=== PATIENT | female | born 1975 | race African-American/Black ===

== ENCOUNTER 2016-12-08 00:37 | Inpatient (IN) ==
[2016-12-08] MEDS ORDERED: DUONEB (A & A) INH ONE (00:51)
[2016-12-08] MEDS ORDERED: NITROGLYCERIN TOP ONE (00:51)
[2016-12-08] MEDS ORDERED: ALBUTEROL NEB INH ONE ×2 (00:51→02:00)
[2016-12-08] MEDS ORDERED: NITROGLYCERIN SL ONE (00:52)
[2016-12-08] MEDS ORDERED: CATAPRES PO ONE (02:21)
[2016-12-08] MEDS ORDERED: NORCO-10 PO ONE (02:22)
[2016-12-08] MEDS ORDERED: SOLU-MEDROL IV ONE (03:08)
[2016-12-08 03:18] LABS: MANUAL DIFF NEEDED? NO
[2016-12-08 03:21] LABS: BASO% 0.2 % (0.0-0.8); EOS# 0.19 X1000 (0.0-0.7); EOS% 3.5 % (0.0-10.0); HEMATOCRIT 32.8 % (37.0-47.0); HEMOGLOBIN 10.9 g/dL (12.0-16.0); IMM GRAN# 0.01 X1000 (0.0-0.04); IMM GRAN% 0.2 % (0.0-0.5); LYMPH# 1.23 X1000 (1.2-3.4); LYMPH% 22.4 % (20.5-51.1); MCH 27.5 PG (27-31); MCHC 33.2 g/dL (33-37); MCV 82.8 FL (81-99); MONO# 0.66 X1000 (0.11-0.59); NEUT% 61.7 % (42.2-75.2); PLT 319 X1000 (130-400); RBC 3.96 XMIL (4.2-5.4)
[2016-12-08 03:46] LABS: ALBUMIN 2.8 g/dL (3.5-5.0); CALCIUM 8.1 mg/dL (8.8-10.2); POTASSIUM 3.6 mmol/L (3.5-5.1); TOTAL BILIRUBIN 0.2 mg/dL (0.20-1.00); TOTAL PROTEIN 6.1 g/dL (6.3-8.3)
[2016-12-08] MEDS ORDERED: HUMULIN R SUBQ ONE (04:01)
--- NOTE | 2016-12-08 04:05 | PROVIDER DOCUMENTATION ---
This chart was entered by Paulina Mcgregor Scribe, acting as scribe for Elia Esparza MD. HPI-Respiratory General - General Chief Complaint: Shortness of Breath Stated Complaint: RETURN/RECHECK Time Seen by Provider: 12/08/16 00:46 Source: patient Allergies/Adverse Reactions: Patient Allergies Allergy/AdvReac Type Severity Reaction Status Date / Time tramadol AdvReac VOMITING Verified 12/26/15 10:46 Home Medications: Home Medication List Medication Instructions Recorded Confirmed Last Taken Type Aspirin 81 mg PO DAILY 08/02/13 12/08/16 12/26/15 06:30 History Albuterol Sulfate Inhaler 2 puff INH Q6H PRN PRN 01/06/14 12/08/16 12/26/15 06: 30 History [Ventolin Hfa] LISINOpril [Prinivil] 20 mg PO BID #0 tablet 01/09/14 12/08/16 12/26/15 06:30 Rx Metformin [Glucophage] 850 mg PO TID CC 06/16/14 12/08/16 12/26/15 06:30 History Insulin Detemir [Levemir] 48 unit SQ QPM 02/22/15 12/08/16 12/25/15 20:00 History Amlodipine Besylate [Norvasc] 10 mg PO DAILY 03/31/15 12/08/16 12/26/15 06:30 History Clonidine [Catapres] 0.1 mg PO DIRECTED PRN 03/31/15 12/08/16 12/26/15 06:30 History Glipizide 10 mg PO DAILY 03/31/15 12/08/16 12/26/15 06:30 History Metoprolol [Lopressor] 50 mg PO DAILY 03/31/15 12/08/16 12/26/15 06:30 History ROSUVAstatin [Crestor] 20 mg PO QHS 03/31/15 12/08/16 12/25/15 20:00 History Furosemide [Lasix] 40 mg PO Q12HR #20 tablet 12/07/16 12/08/16 Unknown Rx Potassium Chloride [Klor-Con M20] 20 meq PO Q12HR #8 tab.er.prt 12/07/16 Unknown Rx - History of Present Illness-Resp Nature of Presenting Problem: 41 year old F presents to the ED with a cc of shortness of breath. Pt states that it is worse with laying flat. Pt states that she was seen here earlier for the same and states that it is not better. Review of Systems - Adult - REVIEW OF SYSTEMS - ADULT Constitutional: denies: chills, fever Eyes: reports: no symptoms reported Ears, Nose, Mouth & Throat: reports: no symptoms reported Cardiovascular: denies: chest pain, palpitations Respiratory: reports: shortness of breath. denies: cough Gastrointestinal: denies: abdominal pain, nausea, vomiting Genitourinary: reports: no symptoms reported Musculoskeletal: reports: no symptoms reported Integumentary: reports: no symptoms reported Neurological: reports: no symptoms reported Psychiatric: reports: no symptoms reported Endocrine: reports: no symptoms reported Hematologic/Lymphatic: reports: no symptoms reported Allergic/Immunologic: reports: no symptoms reported All Other Systems: Reviewed and Negative Past History - Adult - PAST MEDICAL HISTORY-ADULT Review of Records: reports: Nursing Assessment Review, Medications Reviewed Cardiovascular: reports: cardiac disease (pt. 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 " by a joint setter), blood clots (history DVT and PE), HTN Respiratory: reports: other (history PE) Endocrine/Immune: reports: Diabetes Other Conditions: reports: other (PE to R lung) - PRIOR SURGERIES/PROCEDURES Surgical/Procedure History: reports: other (retina detachment) - IMMUNIZATION STATUS Childhood Immunizations: See Nurse Assessment Flu Vaccine: See Nurse Assessment - SOCIAL HISTORY Smoking: non-smoker Substance Use: none/never Alcohol Use Frequency: never Physical Exam-General - PHYSICAL EXAM-ADULT Initial Vital Signs Reviewed: Yes - CONSTITUTIONAL General Appearance: alert, mild distress, obese (morbid) - RESPIRATORY Respiratory: wheezing, other (tachypnic) - CARDIOVASCULAR Cardiovascular: normal peripheral pulses, regular rate, rhythm, no edema - GASTROINTESTINAL (ABDOMEN) Abdominal Exam: normal bowel sounds, non tender, soft - MUSCULOSKELETAL Extremity: pedal edema (trace bilateral lower extremities) - SKIN Integumentary: normal color, normal turgor, warm/dry - PSYCHIATRIC Psych/Mental Status: normal mood/affect, normal thought content, normal thought process, oriented x 3 Progress - PLAN OF CARE/RESULTS Progress/Plan/Lab Results: Vital Signs - 8 hr 12/08/16 00:44 12/08/16 01:10 12/08/16 01:46 Temperature 99.5 F 98.0 F Pulse Rate 107 H 96 H 106 H Respiratory Rate 18 20 20 Blood Pressure 225/123 197/100 O2 Sat by Pulse Oximetry 91 L 96 95 12/08/16 02:06 12/08/16 02:35 12/08/16 03:25 Temperature 98.2 F 98.0 F Pulse Rate 102 H 115 H 100 H Respiratory Rate 16 19 19 Blood Pressure 184/97 139/91 O2 Sat by Pulse Oximetry 94 L 98 95 Laboratory Results - last 24 hr 12/08/16 12/08/16 12/08/16 03:10 03:10 03:10 WBC 5.49 RBC 3.96 L Hgb 10.9 L Hct 32.8 L MCV 82.8 MCH 27.5 MCHC 33.2 RDW Std Deviation 12.4 Plt Count 319 MPV 10.0 Immature Gran % (Auto) 0.2 Neut % (Auto) 61.7 Lymph % (Auto) 22.4 Hardeman % (Auto) 12.0 H Eos % (Auto) 3.5 Baso % (Auto) 0.2 Immature Gran # (Auto) 0.01 Neut # (Auto) 3.39 Lymph # (Auto) 1.23 Hardeman # (Auto) 0.66 H Eos # (Auto) 0.19 Baso # (Auto) 0.01 Sodium 136 Potassium 3.6 Chloride 97 L Carbon Dioxide 24 L Anion Gap 15 BUN 20 Creatinine 1.2 H Estimated GFR/1.73 m2 50 BUN/Creatinine Ratio 17 Glucose 344 H Calculated Osmolality 288 Calcium 8.1 L Total Bilirubin 0.20 AST 23 ALT 20 Alkaline Phosphatase 90 Mkv-N-Wjenrslhoro Pept 323 H Total Protein 6.1 L Albumin 2.8 L Globulin 3.0 Albumin/Globulin Ratio 1.0 Orders Category Date Time Status CHEST-PORTABLE [RAD] Stat Exams 12/08/16 00:51 Taken BNP [PRO B-NATRIURETIC PEPTIDE] Stat Lab 12/08/16 03:10 Completed CBC WITH ELECTRONIC DIFF [HEME] Stat Lab 12/08/16 03:10 Completed CMP [COMPREHENSIVE METABOLIC PANEL] [CHEM] Stat Lab 12/08/16 03:10 Completed Albuterol 2.5MG/Ipratrop 0.5MG [Duoneb (A & A)] Med 12/08/16 00:51 Discontinued 3 ml INH NOW ONE Albuterol [Albuterol Neb] Med 12/08/16 00:51 Discontinued 5 mg INH NOW ONE Albuterol [Albuterol Neb] Med 12/08/16 02:00 Discontinued 5 mg INH NOW ONE Clonidine [Catapres] Med 12/08/16 02:21 Discontinued 0.2 mg PO NOW ONE Hydrocodone/APAP 10 mg/325 mg [Keene-10] Med 12/08/16 02:22 Discontinued 1 each PO NOW ONE Insulin Human Regular [Humulin R] Med 12/08/16 04:01 Once 20 unit SUBQ NOW ONE Methylprednisolone Sod Succ [Solu-Medrol] Med 12/08/16 03:08 Discontinued 125 mg IV NOW ONE Nitroglycerin Med 12/08/16 00:51 Discontinued 1 inch TOP NOW ONE Nitroglycerin Sl [Nitroglycerin] Med 12/08/16 00:52 Discontinued 0.4 mg SL NOW ONE Aerosol Treatments Routine Oth 12/08/16 00:51 Completed Aerosol Treatments Routine Oth 12/08/16 02:00 Completed Aerosol Treatments Stat Oth 12/08/16 00:51 Completed Aerosol Treatments Stat Oth 12/08/16 02:00 Completed Result Diagrams: 12/08/16 03:10 12/08/16 03:10 - REASSESSMENT Reassessment #1 Time Reassessed: 02:21 (pt getting a headache which she has had in the past with nitro so the nitropaste is removed and given a norco 10 and clonidine 0.2 mg po) - XRAY 1 XRAY Study: Chest Impression: Normal XRAY Interpretation: no pulmonary edema, negative: Dr. Esparza(ER ) Departure - Departure Time of Disposition Decision: 04:01 DIAGNOSIS: Accelerated hypertension Acute asthma exacerbation Qualifiers: Asthma severity: moderate persistent Qualified Code(s): J45.41 - Moderate persistent asthma with (acute) exacerbation Disposition: ADMITTED INPATIENT 09 Certified Medical Emergency: Emergent Condition: Fair Referrals and Follow-Ups: Gurpreet Lou [Primary Care Provider] - - Critical Care Note This patient required my direct & personal management of CC.: No This chart was documented by the indicated scribe, (Paulina Mcgregor Scribe) and accurately reflects the services I performed and decisions made by me, Elia Esparza MD, as attested by the provider's signature.
[2016-12-08] MEDS ORDERED: HUMULIN R (PARKWAY) ONE (04:11)
[2016-12-08] MEDS: DUONEB (A & A) INH SCH ×5 (07:28→22:45)
--- NOTE | 2016-12-08 08:22 | Diag Imaging Result Doc PS360 ---
EXAM: CHEST-PORTABLE HISTORY: sob TECHNIQUE: Single view of the chest was performed portably. COMPARISON: 12/07/2016 FINDINGS: There is cardiomegaly. The pulmonary vasculature is not congested. No infiltrates or effusions are identified. There is been no change from the prior study. IMPRESSION: Cardiomegaly. Electronically signed by Ashlyn Arizmendi 12/08/2016 8:20 AM
[2016-12-08] MEDS ORDERED: VENTOLIN HFA INH PRN ×2 (09:14→15:49)
[2016-12-08] MEDS: KLOR-CON PO SCH ×2 (10:47→22:13)
[2016-12-08] MEDS: ASPIRIN PO SCH (10:47)
[2016-12-08] MEDS: NORVASC PO SCH (10:47)
[2016-12-08] MEDS: LOPRESSOR PO SCH (10:47)
[2016-12-08] MEDS ORDERED: HUMALOG DOSE (PARKWAY) SUBQ SCH (11:00)
[2016-12-08] MEDS: SOLU-MEDROL IV SCH ×2 (11:35→22:14)
--- NOTE | 2016-12-08 11:57 | HISTORY AND PHYSICAL ---
PRIMARY CARE PHYSICIAN: Dr. Gurpreet Lou. CHIEF COMPLAINT: Increased shortness of breath. HISTORY OF PRESENTING ILLNESS: This is a 41-year-old morbidly obese, - Citizen Of [place] female who presents to [facility] ER with complaints of increased shortness of breath that has progressively worsened over the last week, states it is worse with lying down, using "multiple pillows" to prop herself up at night, and also worse with minimal exertion. On arrival to the emergency room, she had an O2 saturation of 91% on room air. Blood pressure was 225/123. Laboratory data was essentially unremarkable. Her chest x-ray showed cardiomegaly. She was noted to have wheezing throughout her entire posterior lung garcia, and so she was admitted for further evaluation and treatment. PAST MEDICAL HISTORY: Of hypertension, diabetes type 2, hyperlipidemia, PE, DVT , chronic back pain, asthma, COPD, CHF, neuropathy, anxiety, depression, migraines, retinal detachment bilaterally, and factor V Leiden. PAST SURGICAL HISTORY: Of bilateral retinal surgery. FAMILY HISTORY: Coronary artery disease, CVA and colon cancer. SOCIAL HISTORY: She currently lives with family. Denies any tobacco, alcohol, or illicit drug use. ALLERGIES: To tramadol. HOME MEDICATIONS: She takes clonidine 0.1 mg p.o. p.r.n., Lasix 40 mg p.o. q.12 hours, glipizide 10 mg p.o. daily, Prinivil 20 mg p.o. b.i.d., and Glucophage 850 mg p.o. t.i.d. , all of those will be held. We will continue her Ventolin inhaler 2 puffs q.6 hours p.r.n., Norvasc 10 mg p.o. daily, aspirin 81 mg p.o. daily, Levemir 48 units subcutaneously q.p.m., Lopressor 50 mg p.o. daily, potassium 10 mEq p.o. q.12, and Crestor 20 mg p.o. at bedtime. LABORATORY DATA: Showed a white blood cell count of 5.49, a hemoglobin of 10.9 , hematocrit 32.8, platelets 319,000. Sodium of 136, potassium 3.6, chloride 97, CO2 of 24, BUN of 20, creatinine 1.2, glucose 344. ProBNP was 323. Chest x-ray showed cardiomegaly. REVIEW OF SYSTEMS: She denied any fever, chills, blurred vision, dizziness, chest pain. She has had a productive cough of yellow sputum, shortness of breath and wheezing. She denied any abdominal pain, constipation, diarrhea, burning or hurting with urination. PHYSICAL EXAMINATION: VITAL SIGNS: On arrival, she had a temperature of 99.5 degrees, pulse 107, respirations 18, blood pressure 225/123, saturating 91% on room air. This a.m., she has a temperature of 98.4 degrees, pulse 88, respirations 18, blood pressure is down to 177/93, saturating 95% to 96% on 2 L. GENERAL: This is a 41-year-old morbidly obese, -Citizen Of [place] female who is sitting on the side of the bed, answers questions appropriately. HEENT: Normocephalic and atraumatic. Pupils are equal, round, reactive to light. The extraocular movements are intact. The oropharynx and nares are clear. NECK: Supple. LUNGS: With wheezing throughout entire posterior lung garcia. Equal lung expansion and chest wall movement noted. Productive cough of yellow sputum noted. HEART: With regular rate and rhythm. No murmurs, rubs, or gallops. ABDOMEN: Soft, nontender, nondistended. Bowel sounds are present x4 quadrants. EXTREMITIES: There is no clubbing, cyanosis, or edema. NEUROLOGICAL: The cranial nerves 2-12 are grossly intact. ASSESSMENT: 1. Accelerated hypertension. 2. An acute chronic obstructive pulmonary disease exacerbation. 3. Some mild acute kidney injury. 4. Diabetes type 2 with hyperglycemia. PLAN: She was admitted to the medical unit at [place], placed on O2 per protocol, diabetic diet, DuoNeb q.4 hours. We will continue her home medications as previously identified. She received 125 mg of Solu-Medrol IV x1, in the emergency room, and that is certainly driving her blood sugar up, as we will place her on a high dose sliding scale Humalog insulin with her pattern blood sugars. We will give her 60 mg of Solu-Medrol q.8. We will place her on Rocephin 1 gram IV q.24, and will recheck a CBC and a BMP in the a.m. Dictated by LYNETTE Lazar for Albert Bell MD cc: LYNETTE Lazar MD Joel Alonzo Powell, Jr, MD pt examined, agree with above and follow closely AP[facility]OT MTDD
[2016-12-08] MEDS: LOVENOX SUBQ SCH (16:38)
[2016-12-08] MEDS: GLUCOTROL PO SCH (16:38)
[2016-12-08] MEDS: GLUCOPHAGE PO SCH (16:38)
[2016-12-08] MEDS: ROCEPHIN 1 GM/NS 1 GM/50 ML IVPB IV SCH (16:39)
[2016-12-08] MEDS: HUMALOG DOSE (PARKWAY) SUBQ SCH ×2 (16:44→22:14)
[2016-12-08] MEDS: TYLENOL PO PRN (18:16)
[2016-12-08] MEDS ORDERED: LEVEMIR INSULIN *HA SUBQ SCH (21:00)
[2016-12-08] MEDS: LASIX PO SCH (22:13)
[2016-12-08] MEDS: CRESTOR PO SCH (22:13)
[2016-12-09] MEDS: HUMALOG DOSE (PARKWAY) SUBQ SCH ×6 (01:41→20:59)
[2016-12-09] MEDS: DUONEB (A & A) INH SCH ×6 (04:01→23:06)
[2016-12-09] MEDS: SOLU-MEDROL IV SCH ×3 (04:45→21:01)
[2016-12-09 07:05] LABS: MANUAL DIFF NEEDED? NO
[2016-12-09 07:10] LABS: HEMOGLOBIN 10.7 g/dL (12.0-16.0); IMM GRAN# 0.02 X1000 (0.0-0.04); IMM GRAN% 0.3 % (0.0-0.5); LYMPH# 0.79 X1000 (1.2-3.4); LYMPH% 10.7 % (20.5-51.1); MCHC 32.4 g/dL (33-37); MCV 83.1 FL (81-99); MONO# 0.31 X1000 (0.11-0.59); MONO% 4.2 % (1.7-9.3); MPV 10.3 FL (7.4-10.4); NEUT% 84.8 % (42.2-75.2); PLT 379 X1000 (130-400); RBC 3.97 XMIL (4.2-5.4)
[2016-12-09 07:25] LABS: HEMOGLOBIN A1C 10.5 % (4.8-6.0)
[2016-12-09 07:37] LABS: CALCIUM 8.4 mg/dL (8.8-10.2); POTASSIUM 4.2 mmol/L (3.5-5.1)
[2016-12-09] MEDS: GLUCOTROL PO SCH (09:28)
[2016-12-09] MEDS: NORVASC PO SCH (09:28)
[2016-12-09] MEDS: KLOR-CON PO SCH ×2 (09:28→21:00)
[2016-12-09] MEDS: GLUCOPHAGE PO SCH ×2 (09:28→11:48)
[2016-12-09] MEDS: ASPIRIN PO SCH (09:28)
[2016-12-09] MEDS: LASIX PO SCH (09:33)
[2016-12-09] MEDS: LOPRESSOR PO SCH (09:33)
[2016-12-09] MEDS: ROCEPHIN 1 GM/NS 1 GM/50 ML IVPB IV SCH (11:41)
[2016-12-09] MEDS: NS 1,000 ML IV SCH (12:32)
[2016-12-09] MEDS: TYLENOL PO PRN ×2 (15:15→21:00)
[2016-12-09] MEDS ORDERED: LEVEMIR INSULIN *HA SUBQ SCH (15:37)
--- NOTE | 2016-12-09 15:58 | PROGRESS NOTE ---
DATE: 12/09/2016 SUBJECTIVE: Patient has no focal complaints. OBJECTIVE: Vital Signs: Blood pressure 153/79, heart rate 76, respiratory rate 18, temperature 97.7 degrees, 100% on 2 L. Cardiovascular: Regular rate and rhythm. Pulmonary: Bilateral breath sounds. Clear to auscultation. Gastrointestinal: Soft, nontender, nondistended. Bowel sounds were positive. Pulmonary: Diminished breath sounds throughout, with some occasional wheezing. LABORATORY DATA: White count 7, hemoglobin and hematocrit 10 and 33, platelets 379,000. Creatinine 1.5, BUN of 33, blood sugar of 346. A1c of 10.5. PROBLEM LIST: 1. Asthma, chronic obstructive pulmonary disease exacerbation. Will continue nebulizer treatments, antibiotics, steroids. We will continue to monitor. I think we can wean down her steroids since the wheezing has improved. 2. Acute kidney injury. She has been on high-dose Lasix. I am going to hold that, give her some hydration, and follow closely. She is complaining about difficulty urinating, so we probably will go ahead and institute a Botello catheter and follow. 3. Diabetes. I am going to bump up her Detemir, because she apparently is not well-controlled. Some of that of course could be steroids, but we will increase it to 55 units and see how she does. DISPOSITION: Pending her clinical status, at least another 1-2 days. cc: Albert Bell MD
[2016-12-09] MEDS: LOVENOX SUBQ SCH (17:27)
[2016-12-09 17:55] LABS: URINE CULTURE PL NEEDED? NO
[2016-12-09 18:17] LABS: BILIRUBIN URINE NEGATIVE (NEGATIVE); BLOOD URINE 3+ (NEGATIVE); CLARITY VERY CLOUDY (CLEAR); COLOR YELLOW; LEUKOCYTES URINE NEGATIVE (NEGATIVE); NITRITE URINE NEGATIVE (NEGATIVE); SP GRAVITY URINE 1.015; UROBILINOGEN URINE NORMAL
[2016-12-09 18:18] LABS: URINE CAST GRANULAR PRESENT /LPF; URINE CRYSTAL NONE SEEN /HPF; URINE EPITHELIAL CELLS >10 /HPF (<10); URINE SOURCE CATH
[2016-12-09] MEDS: CRESTOR PO SCH (21:00)
[2016-12-09] MEDS ORDERED: MELATONIN PO SCH (23:30)
[2016-12-09] MEDS ORDERED: MELATONIN PO ONE (23:30)
[2016-12-10] MEDS: HUMALOG DOSE (PARKWAY) SUBQ SCH ×6 (02:05→21:27)
[2016-12-10] MEDS: NS 1,000 ML IV SCH ×2 (02:06→03:36)
[2016-12-10] MEDS: DUONEB (A & A) INH SCH ×6 (03:33→23:02)
[2016-12-10] MEDS: SOLU-MEDROL IV SCH ×3 (03:36→16:57)
[2016-12-10 06:15] LABS: HEMATOCRIT 34.3 % (37.0-47.0); HEMOGLOBIN 11.1 g/dL (12.0-16.0); MCH 26.9 PG (27-31); MCHC 32.4 g/dL (33-37); MCV 83.3 FL (81-99); MPV 10.2 FL (7.4-10.4); RBC 4.12 XMIL (4.2-5.4)
[2016-12-10 06:31] LABS: CALCIUM 8.9 mg/dL (8.8-10.2); POTASSIUM 4.8 mmol/L (3.5-5.1)
[2016-12-10] MEDS: ASPIRIN PO SCH (08:07)
[2016-12-10] MEDS: NORVASC PO SCH (08:07)
[2016-12-10] MEDS: KLOR-CON PO SCH ×2 (08:07→21:30)
[2016-12-10] MEDS: LOPRESSOR PO SCH (08:07)
[2016-12-10] MEDS: GLUCOTROL PO SCH (08:07)
[2016-12-10] MEDS: ROCEPHIN 1 GM/NS 1 GM/50 ML IVPB IV SCH (11:45)
[2016-12-10] MEDS ORDERED: LASIX IV SCH (13:00)
[2016-12-10] MEDS ORDERED: LEVEMIR INSULIN *HA SUBQ SCH (16:05)
[2016-12-10] MEDS ORDERED: SOLU-MEDROL IV SCH (16:05)
[2016-12-10] MEDS ORDERED: RESTORIL PO PRN (16:06)
[2016-12-10] MEDS: LOVENOX SUBQ SCH (16:58)
--- NOTE | 2016-12-10 17:37 | PROGRESS NOTE ---
DATE: 12/10/2016 SUBJECTIVE: The patient has no focal complaints. OBJECTIVE: Vital signs: Blood pressure 169/91, heart rate of 83, respiratory rate 20, temperature 98 degrees, 98% on 2 L. Cardiovascular: Regular rate and rhythm. Pulmonary: Bilateral breath sounds. She did have diffuse wheezing which was worse today versus yesterday. GI: Soft, nontender, nondistended. Bowel sounds are positive. PROBLEMS: 1. Asthma. Chronic obstructive pulmonary disease exacerbation. I am going to go back up on her steroids, continue breathing treatments and follow. She is still complaining she feels like she cannot get the fluid off. Yesterday she had a bump in her creatinine so I started some fluids on her. She is positive today about 610 which is not a ton there, but we will reinstitute Lasix, although her creatinine is still elevated at 1.5. 2. Uncontrolled diabetes. We will titrate up on her Levemir to 70 units. She is on lispro every 4 hours. Again, fairly poorly controlled diabetic. Her A1c is 10.5. 3. Chronic renal failure. We will continue to monitor very closely. Especially on the diuretic. DISPOSITION: Pending her clinical course. cc: Albert Bell MD
[2016-12-10] MEDS ORDERED: SOLU-MEDROL IV ONE (17:48)
[2016-12-10] MEDS ORDERED: LASIX 100 MG in NS 90 ML IV SCH ×2 (18:00→20:00)
[2016-12-10] MEDS ORDERED: TESSALON PO ONE ×2 (18:19→21:25)
--- NOTE | 2016-12-10 19:26 | Diag Imaging Result Doc PS360 ---
EXAM: CHEST-PORTABLE HISTORY: SOB TECHNIQUE: Portable COMPARISON: 12/08/2016 FINDINGS: The lungs are well expanded. Heart is borderline mildly prominent. The vessels are not distended. No pneumonia. No pleural is identified. IMPRESSION: Stable chest Electronically signed by Moses Awad 12/10/2016 7:24 PM
[2016-12-10] MEDS ORDERED: TESSALON PO SCH (21:00)
[2016-12-10] MEDS ORDERED: MELATONIN PO SCH (21:00)
[2016-12-10] MEDS ORDERED: NS 500 ML ONE (21:12)
[2016-12-10] MEDS: CRESTOR PO SCH (21:29)
[2016-12-10] MEDS: TYLENOL PO PRN (21:30)
[2016-12-10] MEDS: ROBITUSSIN-AC PO PRN (22:20)
[2016-12-11] MEDS: HUMALOG DOSE (PARKWAY) SUBQ SCH ×4 (01:32→12:00)
[2016-12-11] MEDS: SOLU-MEDROL IV SCH ×4 (01:33→20:37)
[2016-12-11] MEDS: ROBITUSSIN-AC PO PRN ×4 (01:39→22:29)
[2016-12-11 06:50] LABS: HEMOGLOBIN 11.9 g/dL (12.0-16.0); MCHC 32.2 g/dL (33-37); MCV 83.9 FL (81-99); MPV 10.3 FL (7.4-10.4); RBC 4.41 XMIL (4.2-5.4)
[2016-12-11 07:13] LABS: CALCIUM 9.1 mg/dL (8.8-10.2); POTASSIUM 4.4 mmol/L (3.5-5.1)
[2016-12-11] MEDS: GLUCOTROL PO SCH (08:19)
[2016-12-11] MEDS: ASPIRIN PO SCH (08:20)
[2016-12-11] MEDS: KLOR-CON PO SCH ×2 (08:20→20:36)
[2016-12-11] MEDS: LOPRESSOR PO SCH (08:20)
[2016-12-11] MEDS: NORVASC PO SCH (08:20)
[2016-12-11] MEDS: TESSALON PO SCH ×3 (08:21→20:37)
[2016-12-11] MEDS: DUONEB (A & A) INH SCH ×5 (08:43→23:26)
[2016-12-11] MEDS ORDERED: LASIX 100 MG in NS 90 ML IV SCH ×2 (12:00→14:48)
[2016-12-11] MEDS: ROCEPHIN 1 GM/NS 1 GM/50 ML IVPB IV SCH (12:00)
[2016-12-11] MEDS: TYLENOL PO PRN (12:01)
[2016-12-11] MEDS ORDERED: SOLU-MEDROL IV SCH (12:59)
[2016-12-11 13:16] LABS: BE 2.1 mmoll (-3.0-3.0); BLOOD TYPE ARTERIAL; METHB 1.3 % (0.0-1.5); O2(CT) 15.2 mL/dL (15.0-23.0); PCO2(98.6) 47 mmHg (35-45); PO2(98.6) 53 mmHg (60-100); SAMPLE BLOOD; SAO2 89.9 % (95.0-100.0); THB 12.4 g/dL (11.5-17.4); pH(98.6) 7.38 (7.35-7.45)
[2016-12-11 13:21] LABS: MODALITY ROOM AIR
[2016-12-11 13:22] LABS: ALLEN TEST YES; DRAW SITE R RADIAL
--- NOTE | 2016-12-11 13:49 | PROGRESS NOTE ---
DATE: 12/11/2016 SUBJECTIVE: The patient does not feel good. She feels like she is not improving. Her breathing is worse. She is urinating, but she feels like the fluid is not coming off. Reportedly, she has gained 1 or 2 pounds, but her urine output has been 3800; she is -2100 out now after Lasix drip, but reportedly, she has gained weight and not lost. Reportedly, she came in at a weight of 330, which I find difficult to believe, then it jumped up to 355. If her baseline weight is 355, she has gained 10 pounds despite diuresis, in any case. OBJECTIVE: Vital Signs: Blood pressure 178/98, heart rate of 84, respiratory rate 20, temperature 97.9 degrees, and 98% on 2 liters. Cardiovascular: Regular rate and rhythm. Pulmonary: Bilateral breath sounds, clear to auscultation. Gastrointestinal: Soft, nontender, nondistended. Bowel sounds are positive. She is full, but soft. LABORATORY DATA: White count 10, hemoglobin and hematocrit of 11 and 37, platelets 437. BUN and creatinine of 42 and 1.3; that is from 42 and 1.5 despite the Lasix drip. Glucose of 273. Her proBNP is 345, which is not that impressive. Her chest x-ray is clear. She refused a KUB because she could not lay down flat. PROBLEM LIST: 1. Acute respiratory failure. Again she is not really hypoxic, she is somewhat hypoxic. I did try to get an ABG yesterday, but it does not look like it was completed. I think her major issue unfortunately is weight related. I think she does have an asthma exacerbation obviously, but no evidence of pneumonia. I think I am going to progress with a chest CT, we cannot do it with contrast because of her renal insufficiency, just to better evaluate for pneumonitis or other possibilities, pulmonary edema, etc. She is still very overloaded, so I am going to continue Lasix drip. She seems to be tolerating that, although again her proBNP is low or not that impressive. We will pursue an echocardiogram to best better evaluate for systolic dysfunction versus other. Obesity hypoventilation syndrome is also a possibility, but she gets short winded with bare movement. Again, her BMI is 65, but she reports that she was not this way before she came to the hospital. In any case, she has gotten very deconditioned. She does not feel like she is improving here at [facility], so I am going to transfer her to [facility] for pulmonary evaluation just to see about other treatment options. Additionally, she may need cardiac evaluation pending her echocardiogram results. Chest CT is ordered. Again I think she refused it because she could not lay flat because she is too short winded, but she is not hypoxic again. I explained to that despite her dissatisfaction that she is not improving, she has to work with us in order for us to do the testing required to take care of her, and her anxiety is not a reason not to get the tests done. I do imagine she does get more short winded when she lays flat, but I am not sure she is being very realistic in her goals if we cannot do the testing required to actually take care of her, and we talked about this issue. We will give her some anxiety medicine if need be to lay down flat. I will also do lower extremity Doppler studies to evaluate for DVT. I do not think PE is a clear possibility, but it certainly on the differential, in which case she would need a V/Q scan. In the meantime, I will continue steroids, antibiotics, breathing treatments, and we will follow. 2. Diabetes, still very poorly controlled. She is on some steroids. I will probably titrate those down just a little bit. We have been titrating up on her Levemir, which we will continue to do. We have a little bit better control because her sugars are in the 200 range. Again, at home, I think her sugars are usually in the 200 range. She is up to 70 units on the Detemir. I think we will probably go up to 80 and follow. 3. Disposition is pending her clinical course. Again, she cannot ambulate without some degree of shortness of breath. Again, I think she has been slowly deteriorating. We discussed that once she is stabilized, she really needs to consider weight loss therapy, bariatric surgery it that is a possibility for her because she has significant comorbidities related to her weight. I discussed with the family inside. I think her mother was in the room and a sister. Apparently, she has a sister who is a midlevel, but I did not have a chance to talk to her, so we will follow. cc: Albert Bell MD
[2016-12-11] MEDS ORDERED: ATIVAN IV ONE (14:01)
[2016-12-11] MEDS: LOVENOX SUBQ SCH (15:35)
[2016-12-11] MEDS: HUMALOG SUBQ SCH ×3 (15:40→23:58)
--- NOTE | 2016-12-11 17:26 | Diag Imaging Result Doc PS360 ---
EXAM: CT THORAX W/O CONTRAST HISTORY: asthma, resp failure TECHNIQUE: Dose reduction protocol COMPARISON: 03/31/2015 FINDINGS: No pleural effusions. No thoracic aortic aneurysm. No cardiomegaly. There are small mediastinal lymph nodes. There are small multifocal infiltrates in the right upper lobe and even smaller infiltrates in the right lower lobe. No bronchiectasis. IMPRESSION: Small right lung infiltrates. Electronically signed by Moses Awad 12/11/2016 5:24 PM
--- NOTE | 2016-12-11 17:27 | ECHO REPORT ---
ORDER DATE: 12/11/2016 MEASUREMENTS: Left ventricular end-diastolic diameter 4.8, systolic diameter 3.6, posterior wall thickness 1.1, left atrium 3.8, aortic root 2.8 SUMMARY: 1. Technically difficult study due to limited acoustic window quality. 2. Aortic, mitral, tricuspid, and pulmonic valves are without evidence of structural abnormality. Peak gradient across the aortic valve is 10 mmHg. Aortic root is grossly normal in size. 3. Normal left ventricular dimensions suggested. Estimated left ejection fraction appears to be at least 60%. No obvious regional wall motion abnormalities evident. Doppler suggests normal left ventricular diastolic function. Left atrium, right atrium, and right ventricle are normal in size with normal right ventricular systolic function. 4. No pericardial effusion. 5. Inferior vena cava not seen. CONCLUSIONS: 1. Technically difficult study. 2. No significant valvular abnormality evident. 3. Normal left ventricular systolic function without obvious wall motion abnormality. cc: MD Albert Moore MD
[2016-12-11] MEDS ORDERED: VENTOLIN HFA INH PRN (20:15)
[2016-12-11] MEDS ORDERED: INSULIN PEN NEEDLES ONE (20:18)
[2016-12-11] MEDS ORDERED: RESTORIL PO PRN (20:19)
[2016-12-11] MEDS: CRESTOR PO SCH (20:36)
[2016-12-11] MEDS: LEVEMIR SUBQ SCH (20:39)
[2016-12-11] MEDS ORDERED: LEVEMIR INSULIN *HA SUBQ SCH (21:00)
[2016-12-12] MEDS: DUONEB (A & A) INH SCH ×6 (03:26→23:30)
[2016-12-12] MEDS: ROBITUSSIN-AC PO PRN ×4 (03:36→21:42)
[2016-12-12] MEDS: HUMALOG SUBQ SCH ×6 (04:33→23:32)
[2016-12-12] MEDS: SOLU-MEDROL IV SCH ×3 (04:35→20:43)
[2016-12-12 05:17] LABS: HEMOGLOBIN 12.6 g/dL (12.0-16.0); MCH 27.5 PG (27-31); MCHC 31.5 g/dL (33-37); MCV 87.3 FL (81-99); MPV 10.9 FL (7.4-10.4); RBC 4.58 XMIL (4.2-5.4)
--- NOTE | 2016-12-12 05:22 | EKG Report ---
Test Performed on : 12/11/2016 8:32:33 PM Test Reason : Baseline Blood Pressure : / mmHG Vent. Rate : 086 BPM Atrial Rate : 086 BPM P-R Int : 128 ms QRS Dur : 084 ms QT Int : 370 ms P-R-T Axes : 048 066 073 degrees QTc Int : 442 ms Normal sinus rhythm. Cannot rule out Anterior infarct , age undetermined Abnormal ECG When compared with ECG of 07-DEC-2016 15:22, No significant change was found Confirmed by Hernandez LEE, Jose Woods ([id number]) on 12/12/2016 8:20:55 AM
[2016-12-12 06:03] LABS: CALCIUM 8.8 mg/dL (8.8-10.2); POTASSIUM 4.9 mmol/L (3.5-5.1)
[2016-12-12] MEDS: GLUCOTROL PO SCH (08:59)
[2016-12-12] MEDS: NORVASC PO SCH (09:01)
[2016-12-12] MEDS: ASPIRIN PO SCH (09:01)
[2016-12-12] MEDS: LOPRESSOR PO SCH (09:01)
[2016-12-12] MEDS: ZITHROMAX 500 MG/NS 500 MG/250 ML IVPB IV SCH (09:01)
[2016-12-12] MEDS: TESSALON PO SCH ×3 (09:01→20:43)
[2016-12-12] MEDS: KLOR-CON PO SCH ×2 (09:01→20:43)
[2016-12-12] MEDS ORDERED: APRESOLINE PO ONE (09:35)
[2016-12-12] MEDS: LEVEMIR SUBQ SCH ×2 (11:14→20:43)
[2016-12-12] MEDS: MUCOMYST 20% INH SCH ×2 (11:41→19:30)
[2016-12-12] MEDS: ROCEPHIN 1 GM/NS 1 GM/50 ML IVPB IV SCH (12:41)
[2016-12-12 15:05] LABS: HOURS 24 Hrs
[2016-12-12 15:35] LABS: UR PROTEIN > 600.0 mg/dL
[2016-12-12] MEDS: LOVENOX SUBQ SCH (16:56)
[2016-12-12] MEDS: APRESOLINE PO SCH (17:18)
--- NOTE | 2016-12-12 19:01 | CONSULTATION ---
DATE OF CONSULTATION: 12/12/2016 REQUESTING PHYSICIAN: Dr. Darling. REASON FOR CONSULTATION: Asthma. HISTORY OF PRESENT ILLNESS: Ms. Díaz is a 41-year-old, black female, never smoker, history of childhood asthma which returned as an adult, morbid obesity with a BMI greater than 64, who developed cough with increased yellow sputum production along with increasing shortness of breath. The patient was evaluated in the emergency room and discharged home but returned with persistent dyspnea. The patient was significantly hypertensive in the emergency room with a systolic blood pressure of 225 and a diastolic pressure of 123. She is not on home oxygen, but reports her saturation was less than 90%. Clinically she has improved since admission, but has not yet returned to her baseline. PAST MEDICAL HISTORY: 1. Morbid obesity with a BMI of 64. 2. Asthma. 3. Hypertension. 4. Diabetes mellitus. 5. Dyslipidemia. 6. History of anxiety/depressive disorder. 7. History of deep vein thrombosis and pulmonary emboli. 8. History of retinal detachment. SOCIAL HISTORY: She is a never smoker. Denies alcohol use. 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 FAMILY HISTORY: Positive for hypertension, strokes, kidney disease, and diabetes mellitus. REVIEW OF SYSTEMS: Notable for cough with yellow sputum production. No fevers. Dyspnea with any exertion, purulent sputum production. The patient also has witnessed apneas and snoring by family members. PHYSICAL EXAMINATION: General: Reveals a morbidly obese white female with a BMI of 64.7. Vital signs: Blood pressure 132/70, heart rate , 99 on 2 L per nasal cannula, respiratory rate 16. HEENT: Pupils are equal and reactive. Oropharynx is clear. Neck: Supple. Chest: Reveals expiratory wheezing bilaterally. Cardiac Exam: Distant heart sounds. Normal S1. Normal S2. Abdomen: Obese and soft. Abdominal exam is limited due to size. Extremities: Reveal chronic edematous changes. LABORATORY: CT scan of the thorax reveals tiny infiltrates in the right upper lobe and right lower lobe. Arterial blood gas, pH 7.38, pCO2 of 47, PO2 of 53 on room air. White blood count 11.33, hemoglobin 12.6, platelet count 324,000. Chemistry: Sodium 139, potassium 4.9, chloride 99, bicarbonate 22, anion gap 18, BUN 40, creatinine 1.40. IMPRESSION: A 41-year-old black female with multiple medical problems including diabetes, morbid obesity, and hypertension, who presented with asthma exacerbation, acute bronchitis, mild pneumonitis/pneumonia, hypertensive crisis, and acute hypoxemic respiratory failure, with chronic hypercapnic respiratory failure. RECOMMENDATIONS: 1. Continue treatment for mild pneumonia and asthma exacerbation as you are doing. 2. Recommend outpatient sleep evaluation given witnessed apnea and snoring. 3. Blood pressure control as you are doing. 4. Gastric bypass would be of benefit for this patient if it could be obtained. 5. Patient may require oxygen at discharge given hypoxemia. 6. Recommend venous Dopplers of the lower extremities. The patient has history of deep vein thrombosis but is not currently on anticoagulation. Her creatinine is elevated making a CT angiogram difficult. If she had evidence of acute clots I would recommend anticoagulation. 7. Additional recommendations pending hospital course. cc: Betito Valdes MD
[2016-12-12] MEDS: CRESTOR PO SCH (20:42)
[2016-12-12] MEDS: MUCINEX PO SCH (20:44)
[2016-12-13] MEDS: APRESOLINE PO SCH ×3 (02:40→19:01)
[2016-12-13] MEDS: DUONEB (A & A) INH SCH ×6 (03:07→22:56)
[2016-12-13] MEDS: SOLU-MEDROL IV SCH ×4 (04:07→20:07)
--- NOTE | 2016-12-13 04:07 | PROGRESS NOTE ---
DATE: 12/12/2016 SUBJECTIVE: The patient states that her shortness of breath is improved today. She does complain of a dry cough. OBJECTIVE: Vital signs: Temperature 97.8. Blood pressure 138/76. Pulse rate 87. Respirations 16 . Urine output 2.2 liters. General: This is a morbidly obese female lying on the bed in no acute distress. Head: Normocephalic. Heart: S1, S2. Lungs: Equal air entry bilaterally. No crackles. Abdomen: Positive bowel sounds. Soft. Obese. Nontender. Nondistended. Extremities: +1 edema. No cyanosis.. Neuro: The patient is alert and oriented x3. No focal neurologic deficits noted. LABORATORY: White blood cell count 11, hemoglobin 12 , platelets 324 . Sodium 139, potassium 4.9, chloride 99, CO2 22 glucose 234, calcium 8.8. ASSESSMENT AND PLAN: 1. Right lobe pneumonia. Continue bronchodilator therapy, IV antibiotics, supplement oxygen, and incentive spirometry. We will also check sputum gram stain and culture. 2. Morbid obesity. The patient has been counseled about diet and weight loss. 3. Uncontrolled insulin-dependent diabetes mellitus type 2. The patient is on a significant amount of long acting insulin. We will continue this. 4. Hypertension. We will adjust the patient's antihypertensives. 5. Acute kidney injury. The patient does appear to have proteinuria and a low albumin. The patient may benefit from an evaluation from the measurement and sensing technician as outpatient. Continue to monitor the patient's urine output and renal function closely. 6. Deep venous thrombosis prophylaxis: Continue on Lovenox. 7. Gastrointestinal prophylaxis: We will start the patient on omeprazole. cc: Lyn Darling MD [facility]
[2016-12-13] MEDS: HUMALOG SUBQ SCH ×6 (04:08→23:49)
[2016-12-13] MEDS: PRILOSEC PO SCH ×2 (05:28→06:11)
[2016-12-13] MEDS: MUCOMYST 20% INH SCH ×2 (07:31→19:20)
[2016-12-13] MEDS: ZITHROMAX 500 MG/NS 500 MG/250 ML IVPB IV SCH ×2 (07:43→11:16)
[2016-12-13] MEDS: LEVEMIR SUBQ SCH ×3 (07:44→20:07)
[2016-12-13] MEDS: LOPRESSOR PO SCH ×2 (07:45→11:16)
[2016-12-13] MEDS: TESSALON PO SCH ×4 (07:45→20:07)
[2016-12-13] MEDS: KLOR-CON PO SCH ×3 (07:45→20:08)
[2016-12-13] MEDS: NORVASC PO SCH ×2 (07:45→11:16)
[2016-12-13] MEDS: MUCINEX PO SCH ×3 (07:45→20:07)
[2016-12-13] MEDS: GLUCOTROL PO SCH (07:46)
[2016-12-13] MEDS: ASPIRIN PO SCH ×2 (07:46→11:15)
[2016-12-13 08:23] LABS: MANUAL DIFF NEEDED? NO
[2016-12-13 08:32] LABS: BASO% 0.1 % (0.0-0.8); HEMATOCRIT 37.9 % (37.0-47.0); HEMOGLOBIN 12.4 g/dL (12.0-16.0); IMM GRAN# 0.12 X1000 (0.0-0.04); IMM GRAN% 0.9 % (0.0-0.5); LYMPH# 1.51 X1000 (1.2-3.4); LYMPH% 11.1 % (20.5-51.1); MCH 27.5 PG (27-31); MCHC 32.7 g/dL (33-37); MONO# 0.96 X1000 (0.11-0.59); MONO% 7.1 % (1.7-9.3); NEUT% 80.8 % (42.2-75.2); PLT 482 X1000 (130-400); RBC 4.51 XMIL (4.2-5.4)
[2016-12-13 09:06] LABS: CALCIUM 9.1 mg/dL (8.8-10.2); POTASSIUM 4.7 mmol/L (3.5-5.1)
--- NOTE | 2016-12-13 09:29 | Extremity Venous Study ---
PROCEDURE NAME: Venous U/S Bilateral Legs - 12/11/2016 PROCEDURE: Bilateral lower extremity venous duplex and color flow imaging study using the iFlipd Vivid E9 ultrasound system with 9 L-D transducer. This is a portable study. REFERRING PHYSICIAN: Dr. Bell. IDENTIFICATION: A 41-year-old female. RN CLINICAL COORDINATOR: Teo Simms RVT. INDICATION: Shortness of breath, ICD 10, R06.02. FINDINGS: The right common femoral vein and its branches, the deep and superficial femoral veins were satisfactorily imaged. There was flow through these veins, and they were compressible. The right popliteal vein and deep veins below the right knee were imaged, and there was no evidence of thrombus. Superficial veins of the right lower extremity were compressible throughout their length. The left common femoral vein and its branches, deep and superficial femoral veins were also satisfactorily imaged. They had flow through them, and were compressible. The left popliteal vein and deep veins below the left knee had no evidence of thrombus. Superficial veins of the left lower extremity were compressible throughout their length. INTERPRETATION: This is a limited study secondary to being portable and the patient's morbid obesity, but there was no evidence of acute deep or superficial venous thrombosis of the bilateral lower extremities. cc: MD Albert Perez MD
--- NOTE | 2016-12-13 09:42 | Diag Imaging Result Doc PS360 ---
EXAM: ABDOMEN/PELVIS W/O CONTRAST HISTORY: abdominal pain TECHNIQUE: COMPARISON: None. FINDINGS: There is quite a bit of artifact secondary to the patient's size. Spleen is not enlarged. No focal hepatic abnormality identified on this noncontrasted exam. Normal noncontrasted pancreas and gallbladder. Normal right adrenal gland. The left adrenal gland is prominent measuring at least 2.2 cm. No renal stones. No hydronephrosis. Normal aorta. No bowel obstruction. No abscess. No free air. The uterus is been removed. I believe there are several left ovarian cysts with the largest measuring approximately 3/2 cm. IMPRESSION: Suboptimal exam due to the patient's size. 1. Prominent left adrenal gland 2. No bowel obstruction although there is mild constipation 3. Hysterectomy 4. Ovarian cysts Electronically signed by Moses Awad 12/13/2016 9:39 AM
--- NOTE | 2016-12-13 09:53 | Diag Imaging Result Doc PS360 ---
EXAM: US RENAL 2 (RETROPER) COMPLETE HISTORY: miguel a/arf TECHNIQUE: COMPARISON: None. FINDINGS: The right kidney measures 9.6 x 5.7 x 6.2 cm. Normal renal echogenicity and cortical thickness no renal stone or hydronephrosis. No renal mass. The left kidney measures 9.7 x 6.1 x 6.1 cm. Normal renal echogenicity and cortical thickness. No renal stone or hydronephrosis. No renal mass. A Botello catheter has the urinary bladder decompressed. IMPRESSION: Normal renal ultrasound. Electronically signed by Moses Awad 12/13/2016 9:50 AM
[2016-12-13] MEDS: ROBITUSSIN-AC PO PRN ×2 (10:07→23:56)
[2016-12-13] MEDS: ROCEPHIN 1 GM/NS 1 GM/50 ML IVPB IV SCH (11:15)
--- NOTE | 2016-12-13 14:46 | PROGRESS NOTE ---
DATE: 12/13/2016 SUBJECTIVE: The patient is sitting up in a chair. She states that her shortness of breath has improved. She states that she wants to start trying to walk around the room. OBJECTIVE: Vital Signs: Temperature 98.2 degrees, blood pressure 130/81, heart rate 81, respirations 20, O2 saturations 98% on 2 L nasal cannula. General: This is a morbidly obese female, sitting in a chair in no acute distress. Head: Normocephalic atraumatic. Heart: S1, S2. Normal. Regular rate and rhythm. Lungs: Equal air entry bilaterally. No crackles. No rales. Abdomen: Positive bowel sounds. Soft, obese, nontender, nondistended. Extremities: 2+ edema. No cyanosis. No calf tenderness. Neurologic: The patient is alert and oriented x3. LABS: White blood cell count 13, hemoglobin 12, hematocrit 37, platelets 482,000. Sodium 140, potassium 4.7, chloride 100, CO2 28, BUN 39, creatinine 1.2, glucose 109, calcium 9.1. ASSESSMENT AND PLAN: 1. Pneumonia. Continue on IV antibiotics, bronchodilator therapy, supplemental oxygen and incentive spirometry. Pulmonary is following. 2. Morbid obesity. The patient has been counseled about proper diet and weight loss. We will also consult the dietitian. 3. Hypertension. Continue on the current antihypertensive regimen. 4. Insulin-dependent diabetes mellitus type 2. Continue on Lantus plus sliding scale insulin. 5. Dyslipidemia. Continue on Crestor. 6. Proteinuria. The patient will be set up to follow up with the floor coverer as outpatient. Her renal function is improved today. 7. Deep vein thrombosis prophylaxis. Continue on Lovenox. 8. Will consult physical therapy. cc: Lyn Darling MD
[2016-12-13] MEDS: LOVENOX SUBQ SCH (15:16)
[2016-12-13] MEDS: TYLENOL PO PRN (15:17)
[2016-12-13] MEDS ORDERED: INSULIN PEN NEEDLES ONE (19:57)
[2016-12-13] MEDS: CRESTOR PO SCH (20:08)
[2016-12-14] MEDS: APRESOLINE PO SCH ×3 (02:51→17:08)
[2016-12-14] MEDS: DUONEB (A & A) INH SCH ×6 (03:47→23:15)
[2016-12-14] MEDS: HUMALOG SUBQ SCH ×5 (04:09→20:32)
[2016-12-14] MEDS: SOLU-MEDROL IV SCH ×2 (04:10→17:08)
[2016-12-14 04:51] LABS: MANUAL DIFF NEEDED? NO
[2016-12-14 05:00] LABS: BASO% 0.1 % (0.0-0.8); HEMATOCRIT 37.8 % (37.0-47.0); HEMOGLOBIN 12.6 g/dL (12.0-16.0); IMM GRAN# 0.19 X1000 (0.0-0.04); IMM GRAN% 1.3 % (0.0-0.5); LYMPH# 1.84 X1000 (1.2-3.4); LYMPH% 12.8 % (20.5-51.1); MCH 27.6 PG (27-31); MCHC 33.3 g/dL (33-37); MCV 82.9 FL (81-99); MONO# 1.09 X1000 (0.11-0.59); MONO% 7.6 % (1.7-9.3); MPV 9.8 FL (7.4-10.4); NEUT% 78.2 % (42.2-75.2); PLT 508 X1000 (130-400); RBC 4.56 XMIL (4.2-5.4)
[2016-12-14 05:44] LABS: CALCIUM 8.8 mg/dL (8.8-10.2); POTASSIUM 4.8 mmol/L (3.5-5.1)
[2016-12-14] MEDS: PRILOSEC PO SCH (06:04)
[2016-12-14] MEDS: MUCOMYST 20% INH SCH ×2 (07:41→19:36)
[2016-12-14] MEDS: MUCINEX PO SCH ×3 (07:50→20:24)
[2016-12-14] MEDS: LOPRESSOR PO SCH ×2 (07:50→09:01)
[2016-12-14] MEDS: ASPIRIN PO SCH ×2 (07:50→09:00)
[2016-12-14] MEDS: ZITHROMAX 500 MG/NS 500 MG/250 ML IVPB IV SCH ×2 (07:50→09:00)
[2016-12-14] MEDS: KLOR-CON PO SCH ×3 (07:51→20:24)
[2016-12-14] MEDS: GLUCOTROL PO SCH (07:51)
[2016-12-14] MEDS: NORVASC PO SCH ×2 (07:51→09:01)
[2016-12-14] MEDS: LEVEMIR SUBQ SCH ×3 (07:52→20:30)
[2016-12-14] MEDS: TESSALON PO SCH ×4 (07:52→20:24)
[2016-12-14 11:57] LABS: UR CREATININE 75.7 mg/dL (11-20)
[2016-12-14 11:59] LABS: UR CREATININE TOTAL 1797.9 mg/24 (600-1600)
[2016-12-14] MEDS: ROCEPHIN 1 GM/NS 1 GM/50 ML IVPB IV SCH (12:04)
[2016-12-14] MEDS: MIRALAX PO SCH ×2 (12:04→20:24)
--- NOTE | 2016-12-14 13:08 | PROGRESS NOTE ---
DATE: 12/14/2016 SUBJECTIVE: The patient is sitting at the edge of the bed eating breakfast. She has no complaints at this time. OBJECTIVE: Vital Signs: Temperature 98 degrees, blood pressure 137/82, heart rate 81, respirations 18 and O2 saturations 96% on room air. General: This is a morbidly obese female sitting at the edge of the bed in no acute distress. HEENT: Head normocephalic atraumatic. Heart: S1, S2. Normal. Regular rate and rhythm. Lungs: Clear to auscultation bilaterally. No crackles. No rales. Abdomen: Positive bowel sounds. Soft, obese, nontender, and nondistended. Extremities: No edema. No cyanosis. No calf tenderness. Neurologic: The patient is alert and oriented x3. LABORATORY: White blood cell count 14, hemoglobin 12, hematocrit 37, and platelets 508,000. Sodium 136, potassium 4.8, chloride 99, CO2 26, BUN 37, creatinine 1.2 and glucose 207. ASSESSMENT AND PLAN: 1. Pneumonia. Slowly improving. Will continue on IV antibiotic therapy. We will repeat a chest x-ray tomorrow. 2. Morbid obesity. The patient has been counseled about weight loss and proper diet. 3. Abdominal pain. The patient has not had a bowel movement since admission. We will start her on scheduled laxative therapy. She is also requesting to see a postdoctoral fellow. 4. Diabetes mellitus type 2. Continue on Lantus and sliding scale insulin. 5. Dyslipidemia. Continue on Crestor. 6. Proteinuria. The patient's baseline creatinine appears to be 1.2. It is currently stable. We will set the patient up to follow up with the electrical engineering designer as outpatient. 7. Deep vein thrombosis prophylaxis. Continue on Lovenox. 8. Continue with physical therapy. cc: Lyn Darling MD
[2016-12-14] MEDS ORDERED: GOLYTELY PO ONE (14:00)
--- NOTE | 2016-12-14 14:32 | CONSULTATION ---
DATE OF CONSULTATION: 12/14/2016 GASTROENTEROLOGY CONSULTATION: REASON FOR CONSULTATION: Abdominal pain and worsening constipation, history of polyps. HISTORY OF PRESENT ILLNESS: Ms. Díaz is a 41-year-old female, who was admitted to the hospital on 12/08/2016 for shortness of breath, productive cough, and was diagnosed with asthma exacerbation, acute bronchitis and hypoxemic respiratory failure with history of chronic hypercapnic respiratory failure. She is being followed by Dr. Valdes. She has gotten better regarding her breathing status. She has been complaining of abdominal pain for the last week. She has had a history of chronic constipation. Imaging has showed evidence of constipation. Her last colonoscopy was done many years ago by Dr. Cintron and it showed polyps. She has a grandfather with a history of colon cancer in age 60s. She denies noticing any blood in the stools. She denies any nausea, vomiting, vomiting blood. PAST MEDICAL HISTORY: 1. History of colon polyps. 2. Morbid obesity. 3. Childhood asthma. 4. Obstructive sleep apnea. 5. Hypertension. 6. Diabetes mellitus. 7. Dyslipidemia. 8. Anxiety. 9. Depression. 10. Deep venous thrombosis. 11. Pulmonary embolus. 12. History of retinal detachment. 13. Factor V Leiden. 14. Neuropathy. 15. Congestive heart failure. 16. COPD. 17. Migraines. PAST SURGICAL HISTORY: She had a colonoscopy many years ago at [facility]. Bilateral retinal surgery. SOCIAL HISTORY: She denies any smoking or alcohol. 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 FAMILY HISTORY: Grandfather with colon cancer in his 60s. Also positive for hypertension, kidney disease, diabetes, and stroke. REVIEW OF SYSTEM: Denies any fevers, rigors, or chills. She denies any chest pain or shortness breath at this moment although she had cough with yellow sputum and shortness of breath on admission, which is improved. She denies any nausea, vomiting, vomiting blood or passing blood in the stools or black stools. History of chronic constipation but has worsened over the last few weeks, since she had been having respiratory issues. She denies any neurological problems. She has a little arthritis. ALLERGIES: Tramadol. MEDICATIONS IN THE HOSPITAL: Include Tylenol, Mucomyst, albuterol/ipratropium, albuterol inhaler, amlodipine, aspirin, Tessalon 3 times day, Dulcolax 10 mg per rectal at bedtime , ceftriaxone, Lovenox, glipizide, guaifenesin, guaifenesin/codeine, hydralazine, insulin, detemir which is Levemir 80 units subcutaneous every evening, Levemir 35 units daily, Humalog every 4 hours, methylprednisolone 20 mg IV q.12 hours, metoprolol, Prilosec 40 mg every day, MiraLAX 17 g p.o. b.i.d., potassium chloride 20 mEq b.i.d., Crestor, Restoril, azithromycin, and GoLYTELY. DIET: She is currently on a clear liquid diet PHYSICAL EXAMINATION: Vital Signs: Temperature of 98 degrees, pulse rate of 79 , respiratory rate 21, blood pressure of 115/91, saturating 90% on 2 L nasal cannula. General Appearance: Body weight of 369 pounds. BMI 65.4 kg. General: Morbidly obese, sitting in bed, in no acute distress. HEENT: No pallor. No icterus. Pupils equal, react to light. Neck : Supple. Chest: Decreased breath sounds. Heart: Regular rhythm. Abdomen: Morbidly obese. No guarding. No rebound. Bowel sounds are hypoactive. Liver and spleen not felt because of body habitus. Extremities: No cyanosis, clubbing. Neurologic: She is alert, awake, oriented. DIAGNOSTIC DATA: Labs: Hemoglobin and hematocrit is 12.6 and 37.8, white count of 14.4, platelet count of 508,000, MCV of 82.9. Sodium 132, potassium 4.8, chloride 99, bicarb 26, anion gap of 11, BUN of 37, creatinine 1.2, glucose of 207. Calcium is 8.8. AST 23, ALT 20 , alkaline phos 90, total protein 6.1, albumin of 2.8. HbA1c is 10.5. Urinalysis showing cloudy appearance, 3+ protein, 3+ blood, 10-20 RBCs. Her sputum culture preliminary is showing no bacteria, no yeast, white cells positive, positive mucus, normal kathleen. CT scan of the abdomen and pelvis done on 12/13/2016 showed suboptimal exam because of the patient's size, prominent left adrenal glands, no bowel obstruction although there is mild constipation, hysterectomy, ovarian cyst. CT scan of the chest done on 2016 showed small right lung infiltrate, small mediastinal lymph nodes, no cardiomegaly. Echocardiogram done on 12/11/2016 showed technically difficult study. No significant valvular abnormality evident. Normal left ventricular systolic function, EF of 60%, without any obvious wall motion abnormality. IMPRESSION/PLAN: 1. Abdominal pain, getting worse which she has had in the periumbilical region. 2. Constipation seen on imaging. 3. Morbid obesity. 4. Chronic obstructive pulmonary disease. 5. Obstructive sleep apnea. 6. Asthma, which is feeling better. 7. History of congestive heart failure, although current echo shows normal ejection fraction. 8. History of previous colon polyps. 9. Family history of colon cancer in grandfather age 60s. RECOMMENDATIONS: 1. We will start her on clear liquid diet. We will start her on GoLYTELY today , we will schedule her for colonoscopy tomorrow by Dr. Cintron. The risks, benefits, indications, alternatives were discussed with the patient. Because of the patient's multiple medical comorbid conditions her risk of any kind of procedure, including endoscopy and colonoscopy, is higher. Will continue on GI prophylaxis with Prilosec. 2. At home the patient will need to be on MiraLAX 17 g twice daily. 3. The patient was also counseled to lose weight. 4. Asthma, COPD, chronic hypercapnic respiratory failure being managed by Dr. Valdes. 5. Diabetes mellitus being managed by the primary care team. Her HbA1c was more than 10. She needs to continue to follow up with the primary care doctor as an outpatient to keep good control of her diabetes. Above plan was discussed with the patient and family. cc: MD Lyn Morgan MD James E. Boyle, MD Joel Alonzo Powell, Jr, MD MTDD
[2016-12-14] MEDS: LOVENOX SUBQ SCH (15:40)
[2016-12-14] MEDS: DULCOLAX PR SCH (20:24)
[2016-12-14] MEDS: CRESTOR PO SCH (20:24)
[2016-12-15] MEDS: ROBITUSSIN-AC PO PRN (00:13)
[2016-12-15] MEDS: HUMALOG SUBQ SCH ×7 (00:25→23:45)
[2016-12-15] MEDS: APRESOLINE PO SCH ×3 (01:07→17:23)
[2016-12-15] MEDS: DUONEB (A & A) INH SCH ×5 (03:43→23:14)
[2016-12-15] MEDS: SOLU-MEDROL IV SCH ×2 (05:27→16:34)
[2016-12-15 05:47] LABS: MANUAL DIFF NEEDED? NO
[2016-12-15 05:53] LABS: BASO% 0.1 % (0.0-0.8); EOS# 0.06 X1000 (0.0-0.7); EOS% 0.5 % (0.0-10.0); HEMATOCRIT 38.5 % (37.0-47.0); HEMOGLOBIN 12.9 g/dL (12.0-16.0); IMM GRAN# 0.15 X1000 (0.0-0.04); IMM GRAN% 1.3 % (0.0-0.5); LYMPH# 2.27 X1000 (1.2-3.4); LYMPH% 19.1 % (20.5-51.1); MCH 27.6 PG (27-31); MCHC 33.5 g/dL (33-37); MCV 82.3 FL (81-99); MONO# 1.27 X1000 (0.11-0.59); MONO% 10.7 % (1.7-9.3); MPV 9.7 FL (7.4-10.4); NEUT% 68.3 % (42.2-75.2); PLT 471 X1000 (130-400); RBC 4.68 XMIL (4.2-5.4)
[2016-12-15 06:03] LABS: INR 1.02; PROTIME 10.7 Seconds (9.2-11.7); PTT 23.4 Seconds (22.0-36.0)
[2016-12-15 06:24] LABS: CALCIUM 8.6 mg/dL (8.8-10.2); POTASSIUM 5.2 mmol/L (3.5-5.1)
[2016-12-15] MEDS: LOPRESSOR PO SCH (08:09)
[2016-12-15] MEDS: GLUCOTROL PO SCH ×2 (10:47→10:48)
[2016-12-15] MEDS: ZITHROMAX 500 MG/NS 500 MG/250 ML IVPB IV SCH (10:51)
[2016-12-15] MEDS: MIRALAX PO SCH ×2 (11:09→21:01)
[2016-12-15] MEDS: TESSALON PO SCH ×3 (11:09→21:03)
[2016-12-15] MEDS: LEVEMIR SUBQ SCH ×2 (11:10→21:04)
[2016-12-15] MEDS: MUCOMYST 20% INH SCH ×2 (11:26→19:29)
[2016-12-15] MEDS ORDERED: VERSED ONE (12:15)
[2016-12-15] MEDS ORDERED: DIPRIVAN 1% ONE (12:16)
[2016-12-15] MEDS: ASPIRIN PO SCH (12:47)
[2016-12-15] MEDS: MUCINEX PO SCH ×2 (12:47→21:03)
[2016-12-15] MEDS: ROCEPHIN 1 GM/NS 1 GM/50 ML IVPB IV SCH (12:47)
[2016-12-15] MEDS: NORVASC PO SCH (12:47)
[2016-12-15] MEDS: PRILOSEC PO SCH (12:47)
--- NOTE | 2016-12-15 13:17 | OPERATIVE NOTE ---
PROCEDURE DATE: 12/15/2016 PROCEDURE: Colonoscopy and esophagogastroduodenoscopy. PREOPERATIVE DIAGNOSES: 1. Constipation. 2. Abdominal pain. 3. Nausea. 4. Reflux. POSTOPERATIVE DIAGNOSES: 1. Cindy esophagitis. 2. Normal colon. DESCRIPTION OF PROCEDURE: After informed consent and adequate intravenous sedation by Anesthesia, the scope introduced in the esophagus, stomach and duodenum. Stomach and duodenum are normal. Esophagus: The patient has mild Cindy esophagitis present. The scope is withdrawn. At this point, digital rectal exam performed which was normal. The scope introduced all the way into the cecum. Entire colon is carefully examined. There is no evidence of any polyps, tumors, angiodysplasia, colitis. The patient has retained liquid feces. Constipation seems to be the problem. RECOMMENDATION: MiraLAX and nystatin. cc: Juni Cintron MD
[2016-12-15] MEDS ORDERED: XYLOCAINE-MPF 2% ONE (14:13)
[2016-12-15] MEDS ORDERED: LR 1,000 ML ONE (14:13)
[2016-12-15] MEDS: MYCOSTATIN SUSP PO SCH ×2 (16:35→21:07)
[2016-12-15] MEDS: LOVENOX SUBQ SCH (16:35)
--- NOTE | 2016-12-15 17:18 | PROGRESS NOTE ---
DATE: 12/15/2016 SUBJECTIVE: The patient states that she slept well. She is no longer requiring supplemental oxygen. OBJECTIVE: Vital Signs: Temperature 98.1 degrees, blood pressure 123/68, heart rate 73, respirations 18, O2 saturations 100% on room air. General: This is a morbidly obese female, lying in bed, in no acute distress. Head: Normocephalic atraumatic. Heart: S1, S2. Normal. Regular rate and rhythm. Lungs: Clear to auscultation bilaterally. No crackles. No rales. Abdomen: Positive bowel sounds. Soft, obese, nontender, nondistended. Extremities: +1 edema. No cyanosis. No calf tenderness. Neurologic: The patient is alert and oriented x3. LABS: White blood cell count 11, hemoglobin 12, hematocrit 38, platelets 471,000. Sodium 134, potassium 5.2, chloride 98, CO2 28, BUN 31, creatinine 1.2, glucose 135, calcium 8.6. ASSESSMENT AND PLAN: 1. Pneumonia. Improved. We will continue with another day of IV antibiotic therapy and transition to oral antibiotics tomorrow. 2. Hyperkalemia. The patient is on supplemental potassium and which we will discontinue. 3. Proteinuria. The patient has significant microalbuminuria. We will arrange for the patient to follow up with the bindery operator as outpatient. 4. Diabetes mellitus type 2. Continue on Levemir twice a day. 5. Morbid obesity. The patient has been counseled about weight loss and proper diet. 6. Hypertension. Controlled. Continue on the current antihypertensive regimen. 7. Esophageal candidiasis. We will start the patient on fluconazole in addition to the nystatin suspension. The patient will need at least 10-14 days of therapy. 8. Suspected obstructive sleep apnea. The patient will be referred for an outpatient sleep study. 9. Deep vein thrombosis prophylaxis. Continue on Lovenox. 10. Disposition. The patient will most likely be stable for discharge home tomorrow. cc: Lyn Darling MD
[2016-12-15] MEDS: DIFLUCAN PO SCH (17:23)
[2016-12-15] MEDS: DULCOLAX PR SCH (21:03)
[2016-12-15] MEDS: CRESTOR PO SCH (21:03)
[2016-12-16] MEDS: APRESOLINE PO SCH ×3 (02:26→18:10)
[2016-12-16] MEDS: HUMALOG SUBQ SCH ×6 (03:45→23:34)
[2016-12-16] MEDS: DUONEB (A & A) INH SCH ×6 (04:24→22:53)
[2016-12-16 05:34] LABS: BASO% 0.1 % (0.0-0.8); EOS# 0.03 X1000 (0.0-0.7); EOS% 0.3 % (0.0-10.0); HEMATOCRIT 35.6 % (37.0-47.0); HEMOGLOBIN 11.9 g/dL (12.0-16.0); IMM GRAN# 0.13 X1000 (0.0-0.04); IMM GRAN% 1.3 % (0.0-0.5); LYMPH# 1.68 X1000 (1.2-3.4); LYMPH% 16.2 % (20.5-51.1); MANUAL DIFF NEEDED? NO; MCH 27.6 PG (27-31); MCHC 33.4 g/dL (33-37); MCV 82.6 FL (81-99); MONO% 11.6 % (1.7-9.3); NEUT% 70.5 % (42.2-75.2); PLT 435 X1000 (130-400); RBC 4.31 XMIL (4.2-5.4)
[2016-12-16] MEDS: PRILOSEC PO SCH (06:29)
[2016-12-16] MEDS: MYCOSTATIN SUSP PO SCH ×4 (06:29→20:14)
[2016-12-16 06:35] LABS: CALCIUM 8.4 mg/dL (8.8-10.2); POTASSIUM 4.6 mmol/L (3.5-5.1)
--- NOTE | 2016-12-16 09:04 | Diag Imaging Result Doc PS360 ---
EXAM: CHEST-PORTABLE INDICATION: dyspnea TECHNIQUE: One view COMPARISON: 12/10/2016 FINDINGS: Inspiration is suboptimal. The lungs are grossly clear. There is no discrete pleural fluid collection or pneumothorax. Cardiac silhouette is probably borderline prominent but stable. This is, at least in part, due to magnification from AP technique. The cardiomediastinal silhouette is grossly unremarkable, otherwise. IMPRESSION: Borderline prominent heart. No definite acute pathology. Electronically signed by Ziggy Nicole 12/16/2016 9:02 AM
[2016-12-16] MEDS: GLUCOTROL PO SCH (09:46)
[2016-12-16] MEDS: LOPRESSOR PO SCH (09:46)
[2016-12-16] MEDS: DIFLUCAN PO SCH (09:46)
[2016-12-16] MEDS: TESSALON PO SCH ×3 (09:47→20:13)
[2016-12-16] MEDS: TYLENOL PO PRN (09:47)
[2016-12-16] MEDS: PREDNISONE PO SCH (09:47)
[2016-12-16] MEDS: NORVASC PO SCH (09:47)
[2016-12-16] MEDS: ASPIRIN PO SCH (09:47)
[2016-12-16] MEDS: MUCINEX PO SCH ×2 (09:47→20:13)
[2016-12-16] MEDS: LEVEMIR SUBQ SCH ×2 (09:48→20:15)
[2016-12-16] MEDS: ZITHROMAX 500 MG/NS 500 MG/250 ML IVPB IV SCH (09:48)
[2016-12-16] MEDS: MIRALAX PO SCH ×2 (09:48→20:12)
--- NOTE | 2016-12-16 11:15 | PROGRESS NOTE ---
DATE: 12/16/2016 SUBJECTIVE: The patient is resting comfortably in bed. She has no complaints. OBJECTIVE: Vital Signs: Temperature 98.2 degrees, blood pressure 146/85, heart rate 85, respirations 18, and O2 saturation is 99% on room air. General: This is a morbidly obese female, sitting at the edge of the bed in no acute distress. Head: Normocephalic, atraumatic. Heart: S1 and S2 normal. Regular rate and rhythm. Lungs: Clear to auscultation bilaterally. Abdomen: Positive bowel sounds. Soft, nontender, nondistended. Extremities: Edema 1+. No cyanosis. No calf tenderness. Neurologic: The patient is alert and oriented x3. LABORATORIES: White blood cell count 10, hemoglobin 11, hematocrit 35, platelets 435,000. Sodium 134, potassium 4.6, chloride 96, CO2 of 26, BUN 39, creatinine 1.3, glucose 272. ASSESSMENT AND PLAN: 1. Pneumonia. Improved. Today's chest x-ray shows improvement. Will continue on antibiotic therapy. 2. Microalbuminuria. The patient has poorly controlled diabetes. We will arrange for the patient to follow up with the cycle liaison as an outpatient. 3. Diabetes mellitus, type 2. Continue on Levemir twice a day. 4. Morbid obesity. The patient has been counseled about weight loss and proper diet. 5. Esophageal candidiasis. Continue on fluconazole and nystatin suspension. 6. Suspected obstructive sleep apnea. The patient will need to be set up for an outpatient sleep study. 7. Deep vein thrombosis prophylaxis. Continue on Lovenox. 8. Disposition: The patient will require home oxygen and assistance with her medications, since she is uninsured. We will consult [employer] and they will arrange for this on Sunday. cc: Lyn Darling MD
[2016-12-16] MEDS: ROCEPHIN 1 GM/NS 1 GM/50 ML IVPB IV SCH (12:03)
[2016-12-16] MEDS: MUCOMYST 20% INH SCH ×2 (16:08→19:21)
[2016-12-16] MEDS: LOVENOX SUBQ SCH (16:17)
[2016-12-16] MEDS: DULCOLAX PR SCH (20:13)
[2016-12-16] MEDS: CRESTOR PO SCH (20:13)
[2016-12-17] MEDS ORDERED: BENADRYL PO PRN (02:06)
[2016-12-17] MEDS: APRESOLINE PO SCH ×4 (02:51→18:27)
[2016-12-17] MEDS: DUONEB (A & A) INH SCH ×6 (03:18→23:54)
[2016-12-17] MEDS: HUMALOG SUBQ SCH ×4 (04:22→16:20)
[2016-12-17] MEDS: MYCOSTATIN SUSP PO SCH ×4 (06:21→20:32)
[2016-12-17] MEDS: PRILOSEC PO SCH (06:21)
[2016-12-17] MEDS: MUCOMYST 20% INH SCH ×2 (07:44→20:23)
[2016-12-17] MEDS: MIRALAX PO SCH ×2 (08:46→20:31)
[2016-12-17] MEDS: ZITHROMAX 500 MG/NS 500 MG/250 ML IVPB IV SCH (08:46)
[2016-12-17] MEDS: PREDNISONE PO SCH (08:47)
[2016-12-17] MEDS: TESSALON PO SCH ×3 (08:47→20:32)
[2016-12-17] MEDS: GLUCOTROL PO SCH (08:47)
[2016-12-17] MEDS: LOPRESSOR PO SCH (08:47)
[2016-12-17] MEDS: ASPIRIN PO SCH (08:48)
[2016-12-17] MEDS: NORVASC PO SCH (08:48)
[2016-12-17] MEDS: DIFLUCAN PO SCH (08:48)
[2016-12-17] MEDS: MUCINEX PO SCH ×2 (08:48→20:32)
[2016-12-17] MEDS: TYLENOL PO PRN (08:52)
[2016-12-17] MEDS: LEVEMIR SUBQ SCH ×2 (09:00→20:33)
[2016-12-17] MEDS ORDERED: LACTULOSE PO ONE (10:02)
[2016-12-17] MEDS: LOVENOX SUBQ SCH (16:19)
--- NOTE | 2016-12-17 16:45 | PROGRESS NOTE ---
DATE: 12/17/2016 SUBJECTIVE: The patient is resting comfortably in bed. She has no complaints. OBJECTIVE: Vital Signs: Temperature 98 degrees, blood pressure 149/88, heart rate 69, respirations 18, O2 saturations 99% on room air. General: This is a morbidly obese female sitting in a chair. No acute distress. Head: Normocephalic, atraumatic. Heart: S1, S2. Normal. Regular rate and rhythm. Lungs: Clear to auscultation bilaterally. No wheezing. No rales. Abdomen: Positive bowel sounds. Soft, nontender, nondistended. Extremities: +1 edema. Neuro: The patient is alert and oriented x3. LAB: None. ASSESSMENT AND PLAN: 1. Pneumonia. Will switch the patient to Augmentin. Continue bronchodilator therapy. 2. Microalbuminuria. Aware. 3. Diabetes mellitus type 2. Continue on Levemir twice a day. 4. Morbid obesity. The patient has been counseled about weight loss and proper diet. 5. Esophageal candidiasis. Continue on fluconazole and nystatin suspension. 6. Suspected obstructive sleep apnea. The patient will require a sleep study as outpatient. 7. Deep vein thrombosis prophylaxis. Continue on Lovenox. 8. Disposition. The patient will be discharged tomorrow after her home oxygen has been arranged. cc: Lyn Darling MD
[2016-12-17] MEDS: DULCOLAX PR SCH (20:32)
[2016-12-17] MEDS: AUGMENTIN PO SCH (20:32)
[2016-12-17] MEDS: CRESTOR PO SCH (20:32)
[2016-12-18] MEDS: HUMALOG SUBQ SCH ×5 (00:19→11:47)
[2016-12-18] MEDS: TYLENOL PO PRN ×2 (00:20→09:01)
[2016-12-18] MEDS: APRESOLINE PO SCH ×2 (02:56→09:01)
[2016-12-18] MEDS: DUONEB (A & A) INH SCH ×3 (03:18→11:31)
[2016-12-18] MEDS: PRILOSEC PO SCH (06:35)
[2016-12-18] MEDS: MYCOSTATIN SUSP PO SCH ×2 (06:35→11:47)
[2016-12-18] MEDS ORDERED: INSULIN PEN NEEDLES ONE (07:36)
[2016-12-18] MEDS: MUCOMYST 20% INH SCH (08:12)
[2016-12-18] MEDS: ASPIRIN PO SCH (08:51)
[2016-12-18] MEDS: LOPRESSOR PO SCH (08:51)
[2016-12-18] MEDS: PREDNISONE PO SCH (08:51)
[2016-12-18] MEDS: NORVASC PO SCH (08:51)
[2016-12-18] MEDS: TESSALON PO SCH (08:51)
[2016-12-18] MEDS: AUGMENTIN PO SCH (08:51)
[2016-12-18] MEDS: MUCINEX PO SCH (08:51)
[2016-12-18] MEDS: DIFLUCAN PO SCH (08:52)
[2016-12-18] MEDS: LEVEMIR SUBQ SCH (08:52)
[2016-12-18] MEDS: GLUCOTROL PO SCH (08:52)
[2016-12-18] MEDS: MIRALAX PO SCH (08:53)
[2016-12-18 13:01] VITALS: BP 119/66
--- NOTE | 2016-12-18 22:30 | DISCHARGE SUMMARY ---
ADMISSION DATE: 12/08/2016 DISCHARGE DATE: 12/18/2016 CONSULTATIONS: 1. Betito Valdes MD with Pulmonology. 2. Maciej Salgado MD with Gastroenterology. PERTINENT PROCEDURES: 1. Echocardiogram showed an EF of 60%. 2. Bilateral lower extremity venous Doppler ultrasound was limited secondary to the patient being morbidly obesity but no evidence of acute deep or superficial venous thrombosis of bilateral lower extremities. 3. Chest CT showed small right lung infiltrates. 4. Abdomen and pelvis CT suboptimal secondary to patient's size, prominent for left adrenal gland, no bowel obstruction although there is mild constipation, hysterectomy , ovarian cyst. 5. EGD and colonoscopy showed Cindy esophagitis as well as normal colon. 6. Renal ultrasound normal. DISCHARGE DIAGNOSES: 1. Pneumonia 2. Microalbuminuria 3. Diabetes mellitus type 2 4. Morbid obesity 5. Esophageal candidiasis. 6. Suspected obstructive sleep apnea 7. Constipation 8. Hypertension 9. Chronic kidney disease HOSPITAL COURSE: Ms. Díaz is a 41-year-old female who carries a past medical history of morbid obesity, type 2 diabetes, hypertension, PE, DVT, chronic back pain, asthma, COPD, CHF, neuropathy, anxiety, depression, migraines, retinal detachment bilaterally and Factor V Leiden deficiency, who reported to [facility] with complaints of increased shortness of breath that progressively worsened over the past week. It is worse when she tries to lie down. She uses "multiple pillows" to prop herself up at night and it is also worse with minimal exertion. On arrival to the ED she was found to have a saturation of 91% on room air. Blood pressures were 225/123. Laboratory data was essentially unremarkable. Chest x-ray showed cardiomegaly. She was noted to be wheezing throughout her entire posterior lung field. She was initially admitted to [facility] with accelerated hypertension, acute COPD exacerbation and some mild acute kidney injury. She was placed on O2, diabetic diet, bronchodilators, IV steroids and IV antibiotics. While patient was at [facility] she did have acute respiratory failure. She was transferred over to [facility]. At that time they did do lower extremity Dopplers that did not show any acute or superficial thrombosis. They obtained a chest CT that showed small right lung infiltrates. She was transferred to [facility]. She was seen by Dr. Valdes who agreed with continued treatment for pneumonia and asthma exacerbation as well as obtaining an outpatient sleep study evaluation. We also talked about a gastric bypass that would benefit her if it could be obtained as well as possible home O2 in reference to her home hypoxemia. Dr. Salgado was consulted for her constipation as well as abdominal pain. She underwent an EGD and colonoscopy. She was started on MiraLAX previous to her EGD and colonoscopy. It did show Cindy esophagitis as well as a normal colon. Ms. Díaz has slowly improved. Clinically she is stable and appropriate for discharge today. VITAL SIGNS: Temperature 98.1 degrees, heart rate 80, respirations 17, blood pressure 151/82, O2 is 98% on room air. DISCHARGE DIET: Diabetic. DISCHARGE MEDICATIONS PER DR. PEDROZA: 1. Atenolol inhaler 2 puffs inhaled q.6 hours p.r.n. 2. Norvasc 10 mg p.o. daily. 3. Augmentin 875 p.o. q.12 hours. 4. Aspirin 81 mg p.o. daily. 5. Diflucan 200 mg p.o. daily. 6. Lasix 40 mg p.o. daily. 7. Apresoline 25 mg p.o. q.8 hours. 8. Levemir 35 units subcutaneous daily. 9. Levemir 80 units subcutaneous q.p.m. 10. Prinivil 20 mg p.o. b.i.d. 11. Lopressor 50 mg p.o. daily. 12. Mycostatin suspension 5 mL p.o. a.c. and at bedtime. 13. Crestor 20 mg p.o. at bedtime. FOLLOWUP: 1. Patient is being discharged home with self-care. 2. She will need to follow up with Dr. Valdes in 2 weeks to consider sleep study and possible bariatric surgery. 3. Follow up with her primary care physician, Dr. Gurpreet Lou, Dr. Willard in [address] Cintron in 2 weeks. 4. Patient can return to the emergency department for any worsening of symptoms. DISCHARGE TIME: 30 minutes. Dictated by LYNETTE Toussaint for Lyn Pedroza MD cc: Lyn Pedroza MD [facility]
== END 2016-12-18 14:10 | disposition home or self-care (01) ==
LOC: P.ED 00:37 → OBSVTOIN 04:37 → INTOOBSV 04:37 → P.MEDSURG 04:37 → SUATTDRO 04:37 → 3S 12-11 14:09
PROVIDERS: ATTEND Internal Medicine

== ENCOUNTER 2018-12-25 19:58 | Inpatient (IN) ==
[2018-12-25 23:03] LABS: BASO# 0.01 X1000 (0.0-0.2); BASO% 0.1 % (0.0-0.8); EOS# 0.19 X1000 (0.0-0.7); EOS% 2.8 % (0.0-10.0); HEMATOCRIT 30.7 % (37.0-47.0); HEMOGLOBIN 9.8 g/dL (12.0-16.0); IMM GRAN# 0.01 X1000 (0.0-0.04); IMM GRAN% 0.1 % (0.0-0.5); LYMPH# 1.74 X1000 (1.2-3.4); LYMPH% 25.3 % (20.5-51.1); MCHC 31.9 g/dL (33-37); MCV 81.4 FL (81-99); MONO# 0.64 X1000 (0.11-0.59); MONO% 9.3 % (1.7-9.3); MPV 9.8 FL (7.4-10.4); NEUT# 4.28 X1000 (1.4-6.5); NEUT% 62.4 % (42.2-75.2); PLT 324 X1000 (130-400); RBC 3.77 XMIL (4.2-5.4); RDW 13.6 % (11.5-14.5); WBC 6.87 X1000 (4.8-10.8)
[2018-12-25 23:28] LABS: AGAP 13; ALBUMIN 3.2 g/dL (3.5-5.0); ALKALINE PHOSPHATASE 108 U/L (32-104); BUN 50 mg/dL (8-22); CALCIUM 8.3 mg/dL (8.8-10.2); CHLORIDE 101 mmol/L (98-107); COSMO 291; CREATININE 3.4 mg/dL (0.5-0.9); ESTIMATED GFR 15; GLUCOSE 174 mg/dL (70-104); GOT 12 U/L (10-30); GPT 11 U/L (10-36); POTASSIUM 4.1 mmol/L (3.5-5.1); SODIUM 137 mmol/L (136-145); TCO2 23 mmol/L (25-35); TOTAL BILIRUBIN < 0.15 mg/dL (0.20-1.00); TOTAL PROTEIN 7.2 g/dL (6.3-8.3)
[2018-12-25] MEDS ORDERED: NS 1,000 ML IV ONE (23:35)
[2018-12-26] MEDS ORDERED: NS 1,000 ML IV ONE (01:03)
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
[2018-12-26] MEDS ORDERED: PNEUMOVAX 23 IM ONE (01:50)
[2018-12-26] MEDS ORDERED: TYLENOL PO PRN (02:02)
[2018-12-26 02:16] LABS: BILIRUBIN URINE NEGATIVE (NEGATIVE); BLOOD URINE 2+ (NEGATIVE); CLARITY CLEAR (CLEAR); COLOR STRAW; KETONE URINE NEGATIVE (NEGATIVE); LEUKOCYTES URINE NEGATIVE (NEGATIVE); NITRITE URINE NEGATIVE (NEGATIVE); UROBILINOGEN URINE NORMAL
[2018-12-26 02:23] LABS: URINE BACTERIA 2+ /HFP; URINE CAST NONE SEEN /LPF; URINE CRYSTAL NONE SEEN /HPF; URINE EPITHELIAL CELLS <10 /HPF (<10); URINE SOURCE CLEAN CATCH; URINE YEAST NONE SEEN /HPF
[2018-12-26 02:24] LABS: URINE RBC <10 /HPF (<10)
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
[2018-12-26 05:55] LABS: BASO# 0.01 X1000 (0.0-0.2); BASO% 0.1 % (0.0-0.8); EOS# 0.14 X1000 (0.0-0.7); EOS% 1.8 % (0.0-10.0); HEMATOCRIT 32.5 % (37.0-47.0); HEMOGLOBIN 10.4 g/dL (12.0-16.0); IMM GRAN# 0.01 X1000 (0.0-0.04); IMM GRAN% 0.1 % (0.0-0.5); LYMPH# 1.95 X1000 (1.2-3.4); LYMPH% 25.6 % (20.5-51.1); MCH 25.9 PG (27-31); MONO# 0.54 X1000 (0.11-0.59); MONO% 7.1 % (1.7-9.3); MPV 10.5 FL (7.4-10.4); NEUT# 4.97 X1000 (1.4-6.5); NEUT% 65.3 % (42.2-75.2); PLT 347 X1000 (130-400); RBC 4.01 XMIL (4.2-5.4); RDW 13.7 % (11.5-14.5); WBC 7.62 X1000 (4.8-10.8)
[2018-12-26 06:26] LABS: ALBUMIN 3.3 g/dL (3.5-5.0); CALCIUM 8.4 mg/dL (8.8-10.2); POTASSIUM 4.1 mmol/L (3.5-5.1); TOTAL BILIRUBIN 0.2 mg/dL (0.20-1.00); TOTAL PROTEIN 7.6 g/dL (6.3-8.3)
[2018-12-26 07:34] LABS: HEMOGLOBIN A1C 9.6 % (4.8-6.0)
[2018-12-26] MEDS: NS 1,000 ML IV SCH ×2 (09:48→14:42)
[2018-12-26 10:29] LABS: CK-MB 4.1 ng/mL (0.0-5.0)
[2018-12-26] MEDS ORDERED: ALBUTEROL NEB INH PRN (11:14)
[2018-12-26] MEDS ORDERED: APRESOLINE IV PRN (11:34)
[2018-12-26] MEDS: HUMALOG (PARKWAY) SUBQ SCH ×3 (12:14→21:25)
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
[2018-12-26] MEDS: NORCO-7.5 PO PRN (18:28)
[2018-12-26] MEDS: FLEXERIL PO PRN (18:28)
[2018-12-26] MEDS: CRESTOR PO SCH (21:15)
[2018-12-26] MEDS: LEVEMIR INSULIN *HA SUBQ SCH (21:19)
[2018-12-27] MEDS: NS 1,000 ML IV SCH (01:22)
[2018-12-27] MEDS: NORCO-7.5 PO PRN (04:23)
[2018-12-27] MEDS: HUMALOG (PARKWAY) SUBQ SCH ×4 (06:18→21:32)
[2018-12-27 06:31] LABS: HEMATOCRIT 29.7 % (37.0-47.0); HEMOGLOBIN 9.3 g/dL (12.0-16.0); MCH 25.7 PG (27-31); MCHC 31.3 g/dL (33-37); MPV 10.3 FL (7.4-10.4); RBC 3.62 XMIL (4.2-5.4); RDW 13.5 % (11.5-14.5); WBC 5.51 X1000 (4.8-10.8)
[2018-12-27 07:07] LABS: AGAP 11; ALBUMIN 2.7 g/dL (3.5-5.0); ALKALINE PHOSPHATASE 98 U/L (32-104); BUN 48 mg/dL (8-22); CHLORIDE 107 mmol/L (98-107); COSMO 296; CREATININE 2.8 mg/dL (0.5-0.9); ESTIMATED GFR 19; GLUCOSE 209 mg/dL (70-104); GOT 12 U/L (10-30); GPT 10 U/L (10-36); MAGNESIUM 1.7 mg/dL (1.5-2.7); POTASSIUM 4.9 mmol/L (3.5-5.1); SODIUM 139 mmol/L (136-145); TCO2 21 mmol/L (25-35); TOTAL BILIRUBIN < 0.15 mg/dL (0.20-1.00); TOTAL PROTEIN 6.5 g/dL (6.3-8.3)
[2018-12-27] MEDS: PRINIVIL PO SCH ×2 (09:21→21:32)
[2018-12-27] MEDS: ASPIRIN PO SCH (09:21)
--- NOTE | 2018-12-27 16:58 | PROGRESS NOTE ---
DATE: 12/27/2018 SUBJECTIVE: Patient notes she is still having some mild abdominal pain, but is feeling better. Her nausea and vomiting is improved. Denies any other issues currently. PHYSICAL EXAMINATION: Vital Signs: Temperature 98, pulse 95, respiratory 18, BP 154/78. General: Patient is awake, alert. She is in no distress. HEENT: Normocephalic. Neck: Supple. Cardiovascular: Regular rate. No murmurs. Chest: Clear. Abdomen: Soft, nondistended, nontender. No masses. Extremities: Moves all extremities. Neurologic: No changes. ASSESSMENT: 1. Acute kidney injury on chronic renal disease creatinine 3.4 on admit, currently down to 2.8. Her baseline is around 3.3. 2. Abdominal pain. Appears to be improved. 3. Hypertension. 4. Type 2 diabetes. 5. Hyperlipidemia. 6. Chronic back pain. 7. Chronic obstructive pulmonary disease. PLAN: The patient's creatinine is better although we have not restarted her lisinopril. It appears though she may have been on 40 twice daily, which is certainly a high level. We will decrease that to 40 total daily at 20 twice daily. We will continue to follow. Continue IV fluids. Recheck in the a.m. and hopefully home. cc: Prakash Betancourt MD
[2018-12-27] MEDS: LEVEMIR INSULIN *HA SUBQ SCH (21:32)
[2018-12-27] MEDS: CRESTOR PO SCH (21:32)
[2018-12-27] MEDS: FLEXERIL PO PRN (21:43)
[2018-12-28] MEDS: HUMALOG (PARKWAY) SUBQ SCH (06:14)
[2018-12-28 07:49] VITALS: BP 157/69
[2018-12-28] MEDS ORDERED: APRESOLINE PO SCH (09:00)
[2018-12-28] MEDS: ASPIRIN PO SCH (09:06)
[2018-12-28] MEDS: PRINIVIL PO SCH (09:06)
--- NOTE | 2018-12-28 19:24 | DISCHARGE SUMMARY ---
ADMISSION DATE: 12/26/2018 DISCHARGE DATE: 12/28/2018 DISCHARGE DIAGNOSES: 1. Abdominal pain, appears resolved. 2. Hypertension. Blood pressures are elevated. We have adjusted her medications. 3. Acute on chronic kidney injury, improved. 4. Type 2 diabetes. 5. Hyperlipidemia. 6. History of pulmonary emboli and deep venous thrombosis. 7. Chronic obstructive pulmonary disease. 8. Chronic pain. 9. Chronic anxiety, depression. CONSULTATIONS: None. PROCEDURES: None. BRIEF HOSPITAL COURSE: The patient is a 43-year-old female who presented to the hospital, treated in the usual fashion, placed on telemetry, IV fluids. Her blood pressures were made minimally elevated on admission, but she was also in acute renal failure. We held her lisinopril and ultimately did restart it back at 20 twice daily as opposed to 40 twice daily which apparently was her home medications. We added hydralazine which she tolerated very well. On discharge her creatinine and BUN both had started improving and she was drinking much better. DISPOSITION: The patient will be discharged home. Discussed her that she needs to follow up outpatient with her primary care and recheck her labs next week. We did restart her lisinopril at 20 mg twice daily as opposed to 40 and started hydralazine at 25 twice daily as well. TIME SPENT: Greater than 30 minutes were spent in total discharge care and instructions. Discussed with patient that she needs to stay hydrated, needs to follow up with her primary care. DISCHARGE MEDICATIONS: Crestor 20, albuterol p.r.n., aspirin 81, Lasix 40 twice daily although she is going to hold this for the next 3 days, Levemir 45, Prinivil 20 twice daily, hydralazine 25 twice daily, and Flexeril 10 t.i.d. . cc: Prakash Betancourt MD
== END 2018-12-28 11:50 | disposition home or self-care (01) | DRG 683 ==
LOC: P.ED 19:58 → P.MEDSURG 12-26 01:14
PROVIDERS: ATTEND Family Medicine
CPT/HCPCS: 74176; 80053; 81001; 82550; 82553; 82948; 83036; 83735; 85025; 85027; 87088; A9270; J1815; J7030; XXXXX